=== PATIENT | male | born 1955 | race Caucasian/White ===

== ENCOUNTER → 2017-08-08 | Outpatient (CLI) | payer OTHER | LOC: COL.RAD 09:55 | DX: M25.532 Pain in left wrist (principal); M79.645 Pain in left finger(s) | CPT/HCPCS: J3301; Q9967 ==

== ENCOUNTER → 2019-03-24 | Outpatient (CLI) | payer OTHER | LOC: COL.RAD 15:12 | DX: M47.816 Spondylosis without myelopathy or radiculopathy, lumbar region (principal); I70.0 Atherosclerosis of aorta ==